=== PATIENT | female | born 1950 | race Caucasian/White ===

== ENCOUNTER → 2024-02-21 07:32 | Outpatient (REF) | payer OTHER, SELFPAY | LOC: WDC 07:32 | PROVIDERS: ATTENDING PHYSICIAN Registered Nurse | DX: Z13.820 Encounter for screening for osteoporosis (principal); Z12.31 Encounter for screening mammogram for malignant neoplasm of breast; Z78.0 Asymptomatic menopausal state; M85.89 Other specified disorders of bone density and structure, multiple sites | CPT/HCPCS: 77063; 77067; 77080 ==

== ENCOUNTER 2024-05-16 18:41 | Emergency (ER) | payer OTHER, SELFPAY ==
[2024-05-16 18:42] VITALS: BP 141/91
--- NOTE | 2024-05-16 19:22 | ED.MUSCINJ ---
HPI-Injury
General
Chief Complaint: Extremity Pain (non-traumatic)
Source: patient
Time Seen by Provider: 05/16/24 19:12
History of Present Illness-Injury
Initial Injury comments:
73yo right hand dominant female presenting for evaluation of a right middle finger injury that was sustained 1 hour ago. Patient accidentally closed a car door onto her finger causing a laceration. She denies any paresthesias to the digit. Unknown
last Tdap. She took aspirin yesterday for a headache but she does not typically take any blood thinners.
Phy Exam
Physical Exam
Physical Exam:
Right middle finger: Curved laceration to the dorsum of the digit with central area of avulsed skin. +Venous oozing. ROM of DIP, PIP, and MCP joint intact. Cap refill and sensation intact at fingertip.
General Physical Exam
General Presentation: well appearing and no apparent distress
General age: appears stated age
General Skin: warm and dry
General Habitus: normal
Injury Course
Orders/Labs/Results
Orders:
Orders
05/16/24 18:46
Hand, Right 3 View [CR Hand - Right Min 3 Views] Urgent
Comment:
Reason For Exam: pain/trauma
05/16/24 19:21
Aluminium Finger Splint Right ONCE
05/16/24 20:20
Tetanus/Diphth/Acelpertussis [Adacel] 0.5 ml IM .ONCE ONE
MDM/Problems Addressed
Differential Diagnosis Includes:
73yoF here with R middle finger injury and laceration. There is a central area of avulsed skin present which is unable to be repaired with sutures. Digit is neurovascularly intact with normal ROM. X-rays negative for fractures. Wound was irrigated
and bacitracin applied. Surgicel applied with hemostasis. Wound dressed and static finger splint applied. Tdap updated. Home wound care discussed. Advised return to the ED with any signs of infection or uncontrolled bleeding.
*Critical Care Note
Total Time (30-74mins, 75-104mins- exclusive of procedures): Not Applicable
ED Attending Note
-
Portions of this chart may have been created with voice recognition software.� Occasional wrong word or��sound alike� substitutions may have occurred due to the inherent limitations of voice recognition software.
Discharge Plan
Departure
Patient Disposition: Home (Routine Discharge)
Date of Disposition: 05/16/24
Time of Disposition: 20:21
Patient with high blood pressure during this ER visit?: Yes
Discharge Problem:
Laceration of right middle finger
Instructions: Taking care of cuts, scrapes, and puncture wounds
Referrals:
Kwabena London CRNP [Family Provider] -
Activity Restrictions/Additional Instructions:
Change dressing in 24-48 hours. Keep wound clean and dry. Wear finger splint to help with healing.
Return to the ER with any signs of infection or uncontrolled bleeding.
Interventions
Interventions:
*Risk Screen - Suicide Last Done: 05/16/24 19:02
*General Assessment Last Done: 05/16/24 19:02
*Neglect/Abuse Screening Last Done: 05/16/24 19:02
ED- Fall Risk Assessment Last Done: 05/16/24 20:35
*ED COVID-19 Vaccine History Last Done: 05/16/24 19:02
*Nursing Disposition Last Done: 05/16/24 20:35
ED-Skin Assessment Last Done: 05/16/24 19:03
ED-Peripheral Vascular Assessment Last Done: 05/16/24 19:03
ED-Musculoskeletal Assessment Last Done: 05/16/24 19:03
Discharge Date and Time
Discharge Date/Time: 05/16/24 20:36
Print Language: JORDANIAN
[2024-05-16 20:30] VITALS: BP 138/78
[2024-05-16] MEDS: ADACEL 0.5 ML IM (20:31)
== END 2024-05-16 20:36 | disposition home or self-care (01) ==
LOC: EMR 18:41
PROVIDERS: EMERGENCY PHYSICIAN Student in an Organized Health Care Education/Training Program; FAMILY PHYSICIAN Registered Nurse
DX: S61.212A Laceration without foreign body of right middle finger without damage to nail, initial encounter (principal); W23.2XXA Caught, crushed, jammed or pinched between a moving and stationary object, initial encounter; Z23 Encounter for immunization; Z88.5 Allergy status to narcotic agent
CPT/HCPCS: 99283; 90471; 29130; 73130; 90715

== ENCOUNTER 2024-08-27 17:55 | Emergency (ER) | payer OTHER, SELFPAY ==
[2024-08-27 18:03] VITALS: BP 138/87
--- NOTE | 2024-08-27 18:56 | ED.GENMED ---
History of Present Illness
General
Chief Complaint: Musculo-Skeletal Complaint
Time Seen by Provider: 08/27/24 18:16
History of Present Illness
History of Present Illness:
74-year-old female presents to the emergency department for evaluation of right shoulder and elbow pain after a fall. She was walking her dog when the dog pulled her arm forcefully to the ground. Denies any head strike or loss of consciousness.
Does not take blood thinners.
Review of Systems
Review of Systems
Allergies reviewed?: Yes
All Other Systems: ROS reviewed and negative except as documented in HPI and ROS
Phy Exam
Physical Exam
Physical Exam:
GEN: Well appearing, NAD, WDWN
HEENT: Oral mucosa moist, no scleral icterus
Cardiac: Regular rate
Lung: No respiratory distress, no tachypnea
MSK: Deformity and sulcus to the right shoulder compatible with anterior dislocation, no reproducible right elbow tenderness, axillary nerve distribution sensation intact
Skin: Good color, no pallor or jaundice, no rashes
Neuro: AO x3, moves all extremities freely
Psych: Calm, cooperative
Course
Orders/Labs/Results
Orders:
Orders
08/27/24 18:12
CR Elbow - Right Min 3 Views Urgent
Comment:
Reason For Exam: pain injury
Shoulder, Right, Trauma [CR Shoulder, Trauma - Right] Urgent
Comment:
Reason For Exam: pain injury
08/27/24 18:56
HYDROmorphone [Dilaudid] 0.5 mg IV NOW STA
Ondansetron Injectable [Zofran] 4 mg IV NOW STA
08/27/24 19:11
CR Shoulder - Right 1 View Urgent
Comment:
Reason For Exam: post reduction
Vital Signs
Initial and Last Documented VS:
Initial Vital Signs
Temp Pulse Resp BP Pulse Ox
97.8 F 72 18 138/87 96
08/27/24 18:03 08/27/24 18:03 08/27/24 18:03 08/27/24 18:03 08/27/24 18:03
Last Documented Vital Signs
Temp Pulse Resp BP Pulse Ox
97.8 F 80 14 132/80 96
08/27/24 18:03 08/27/24 20:33 08/27/24 20:33 08/27/24 20:33 08/27/24 20:33
Procedures
Joint/Fracture Reduction
Right Shoulder:
Indication for procedure:: Anterior glenohumeral dislocation
Procedure completed by: Aguilar Velázquez PA-C
Joint reduced: without anesthesia
Injury was: closed
Further treatement: needs re-check only
Post reduction exam: stable
Capillary Refill: normal
Normal distal neurovascular exam?: Yes
MDM/Problems Addressed
MDM/Problems Addressed:
X-rays reveal anterior glenohumeral dislocation without associated fracture, patient was given IV hydromorphone and bedside reduction was performed successfully. Discussed supportive care and need for orthopedic follow-up
*Critical Care Note
Total Time (30-74mins, 75-104mins- exclusive of procedures): Not Applicable
ED Attending Note
-
Portions of this chart may have been created with voice recognition software.� Occasional wrong word or��sound alike� substitutions may have occurred due to the inherent limitations of voice recognition software.
Discharge Plan
Departure
Patient Disposition: Home (Routine Discharge)
Date of Disposition: 08/27/24
Time of Disposition: 19:39
Patient with high blood pressure during this ER visit?: No
Discharge Problem:
Anterior dislocation of right shoulder
Instructions: Shoulder Dislocation (DC)
Referrals:
Gerald Colon MD [Active] -
Activity Restrictions/Additional Instructions:
Use the sling exclusively for the next 3 days however you should allow the arm to hang by her side for at least 30 minutes to 1 hour/day. No overhead reaching. You may gradually remove the sling for longer periods of time as the days progressed.
Follow-up with orthopedics for further instruction
Interventions
Interventions:
*Risk Screen - Suicide Last Done: 08/27/24 18:03
*General Assessment Last Done: 08/27/24 18:03
*Neglect/Abuse Screening Last Done: 08/27/24 18:03
*ED COVID-19 Vaccine History Last Done: 08/27/24 18:03
*Nursing Disposition Last Done: 08/27/24 20:34
ED-Musculoskeletal Assessment Last Done: 08/27/24 18:03
Discharge Date and Time
Discharge Date/Time: 08/27/24 20:35
Print Language: OCCITAN
[2024-08-27] MEDS: ZOFRAN 4 MG IV (18:59)
[2024-08-27] MEDS: DILAUDID 0.5 MG IV (19:00)
[2024-08-27 20:33] VITALS: BP 132/80
== END 2024-08-27 20:35 | disposition home or self-care (01) ==
LOC: EMR 17:55
PROVIDERS: EMERGENCY PHYSICIAN Emergency Medicine; FAMILY PHYSICIAN Registered Nurse
DX: S43.014A Anterior dislocation of right humerus, initial encounter (principal); W19.XXXA Unspecified fall, initial encounter; Y93.K1 Activity, walking an animal
CPT/HCPCS: 99283; 23650; 73020; 73030; 73080

== ENCOUNTER → 2024-09-11 19:05 | Outpatient (REF) | payer OTHER, SELFPAY | LOC: MRI 19:05 | PROVIDERS: ATTENDING PHYSICIAN Orthopaedic Surgery | DX: M25.511 Pain in right shoulder (principal); S43.004A Unspecified dislocation of right shoulder joint, initial encounter | CPT/HCPCS: 73221 ==

== ENCOUNTER 2024-09-15 06:15 | Outpatient (RCR) | payer OTHER, SELFPAY | END 2024-09-15 23:59 | disposition home or self-care (01) | LOC: RPT 06:15 | PROVIDERS: ATTENDING PHYSICIAN Physician Assistant; FAMILY PHYSICIAN Registered Nurse | DX: S43.004D Unspecified dislocation of right shoulder joint, subsequent encounter (principal); Z73.6 Limitation of activities due to disability | CPT/HCPCS: 97110; 97162 ==

== ENCOUNTER 2024-10-21 15:09 | Outpatient (RCR) | payer OTHER, SELFPAY | END 2024-10-22 07:36 | disposition home or self-care (01) | LOC: RPT 15:09 | PROVIDERS: ATTENDING PHYSICIAN Physician Assistant; FAMILY PHYSICIAN Registered Nurse | DX: S43.004D Unspecified dislocation of right shoulder joint, subsequent encounter (principal); Z73.6 Limitation of activities due to disability; M62.81 Muscle weakness (generalized) | CPT/HCPCS: 97010; 97110; 97140 ==

== ENCOUNTER 2025-01-14 06:16 | Day surgery (SDC) | payer OTHER, SELFPAY ==
[2024-12-31 08:44] LABS: % Basophils 0.6 % (0-2); % Eosinophils 2.3 % (0-6); % Immature Granulocytes 0.1 % (0-0.5); % Lymphocytes 24.8 % (20.5-51.1); % Neutrophils 64.2 % (42.2-75.2); Absolute Basophils 0.1 10^3/uL (0-0.2); Absolute Eosinophils 0.2 10^3/uL (0-0.7); Absolute Monocytes 0.6 10^3/uL (0.1-0.6); Hematocrit 38.9 % (37.0-47.0); Hemoglobin 12.6 g/dL (12.0-16.0); Mean Corp Hgb Conc. 32.4 g/dL (33.0-37.0); Mean Corpuscular Hgb 28.2 pg (27.0-31.0); Mean Platelet Volume 9.6 fL (7.4-10.4); Nucleated Red Blood Cells % 0 %; Platelet Count 297 10^3/uL (130-400); Red Blood Cell Count 4.47 10^6/uL (4.20-5.40); Red Cell Dist. Width 14.3 % (11.5-14.5); White Blood Cell Count 7.9 10^3/uL (4.8-10.8)
[2024-12-31 10:20] LABS: Blood Urea Nitrogen 17 mg/dl (7-17); Calcium 9.8 mg/dl (8.4-10.2); Carbon Dioxide 21 mmol/L (22-30); Chloride 112 mmol/L (98-107); Glucose 90 mg/dl (70-99); Potassium 4.5 mmol/L (3.5-5.1); Sodium 142 mmol/L (135-145); eGFR > 60.00
[2024-12-31 14:14] VITALS: BMI 35.7
--- NOTE | 2025-01-04 14:11 | PTCARENOTE ---
Patients 12/31 EG abnormal- reviewed by Dr. Rogers- no additional interventions required.
[2025-01-14] VITALS (9 sets, daily range): BP systolic 115–138; BP diastolic 67–81; BMI 35.7
[2025-01-14] MEDS: CELEBREX 200 MG PO (07:30)
[2025-01-14] MEDS: NORMOSOL-R/PLASMALYTE-A 1000 IV (07:30)
[2025-01-14] MEDS: TYLENOL 1000 MG PO (07:30)
== END 2025-01-14 12:20 | disposition home or self-care (01) ==
LOC: SDS 06:16
PROVIDERS: ATTENDING PHYSICIAN Orthopaedic Surgery; FAMILY PHYSICIAN Registered Nurse
DX: M75.111 Incomplete rotator cuff tear or rupture of right shoulder, not specified as traumatic (principal); M19.011 Primary osteoarthritis, right shoulder
CPT/HCPCS: 29827; 36415; 80048; 85025; 93005; C1713

== ENCOUNTER 2025-02-19 06:21 | Outpatient (RCR) | payer OTHER, SELFPAY | END 2025-02-19 23:59 | disposition home or self-care (01) | LOC: RPT 06:21 | PROVIDERS: ATTENDING PHYSICIAN Physician Assistant Medical; FAMILY PHYSICIAN Registered Nurse | DX: M25.511 Pain in right shoulder (principal); Z73.6 Limitation of activities due to disability; Z98.890 Other specified postprocedural states | CPT/HCPCS: 97110; 97162 ==

== ENCOUNTER 2025-03-22 15:19 | Outpatient (RCR) | payer OTHER, SELFPAY | END 2025-03-22 23:59 | disposition home or self-care (01) | LOC: RPT 15:19 | PROVIDERS: ATTENDING PHYSICIAN Physician Assistant Medical; FAMILY PHYSICIAN Registered Nurse | DX: Z47.89 Encounter for other orthopedic aftercare (principal); M25.511 Pain in right shoulder; M62.81 Muscle weakness (generalized); Z73.6 Limitation of activities due to disability | CPT/HCPCS: 97010; 97110; 97140 ==

== ENCOUNTER 2025-04-21 15:13 | Outpatient (RCR) | payer OTHER, SELFPAY | END 2025-04-21 23:59 | disposition home or self-care (01) | LOC: RPT 15:13 | PROVIDERS: ATTENDING PHYSICIAN Physician Assistant Medical; FAMILY PHYSICIAN Registered Nurse | DX: Z47.89 Encounter for other orthopedic aftercare (principal); M25.511 Pain in right shoulder; M62.81 Muscle weakness (generalized); Z73.6 Limitation of activities due to disability | CPT/HCPCS: 97010; 97110; 97140 ==

== ENCOUNTER 2025-05-19 15:05 | Outpatient (RCR) | payer OTHER, SELFPAY | END 2025-05-19 23:59 | disposition home or self-care (01) | LOC: RPT 15:05 | PROVIDERS: ATTENDING PHYSICIAN Physician Assistant Medical; FAMILY PHYSICIAN Registered Nurse | DX: Z47.89 Encounter for other orthopedic aftercare (principal); M25.511 Pain in right shoulder; M62.81 Muscle weakness (generalized); Z73.6 Limitation of activities due to disability | CPT/HCPCS: 97010; 97110; 97140 ==

== ENCOUNTER 2025-06-16 15:51 | Outpatient (RCR) | payer OTHER, SELFPAY | END 2025-06-16 23:59 | disposition home or self-care (01) | LOC: RPT 15:51 | PROVIDERS: ATTENDING PHYSICIAN Physician Assistant Medical; FAMILY PHYSICIAN Registered Nurse | DX: Z47.89 Encounter for other orthopedic aftercare (principal); M25.511 Pain in right shoulder; M62.81 Muscle weakness (generalized); Z73.6 Limitation of activities due to disability | CPT/HCPCS: 97010; 97110 ==